=== PATIENT | female | born 1990 | race Caucasian/White ===

== ENCOUNTER 2019-06-01 20:00 | Inpatient (IN) | payer OTHER, SELFPAY ==
--- NOTE | 2019-06-01 21:22 | HPE_ITS ---
History of Present Illness 29 yo at 40 weeks with prelabor ROM - spontaneous @ ~2 AM 06/01. Evaluated in office this morning - Category 1 NST, good mvmt, gross ROM - clear - vtx, GBS neg She wished to have expectant management - spent the afternoon resting, napped ~1 hr. Onset mild/mod ctx ~6 pm - more intense over time. clear AF per vagina today - some mucous lately Denies abd pain, [place], vision changes, edema, tight rings, SOB, herpetic oputbreak compliant with valtrex the past month - 500mg po bid note neg GST times two secondary to BMI two 6, 6.5 pound boys at 37-38 weeks - no labor issues Anemia at 27 weeks - po iron BP range 125-140/75-86 through out - pulse ~100 lifelong plans breast feeding, seeking no meds during labor excellent family support present bi weekly NST's and BP checks have been cat 1 and stable pressure with no to xemic features - no proteinuria, neg labs O: bp per flow sheet - 138/86 comfortable perineum - no herpetic lesions/blisters lungs - celar cvs - reg, baseline tachy abd - 38 cm FH, non tender, firm with ctx cervix - soft, ant, 3 cm/80%/vtx/-2/ OA/ ruptured ext - no edema, nl brisk reflexes - no clonus NST - reactive, cat 1, ctx q 4 A: Early labor - maternal and wellbeing no evidence toxemia, HSV, Anemia P: Expect mod risk for shoulders - this baby is larger than prior and her BMI HL, CBC, cont valtrex Ambulate, shower, allow labor to intensify Dr. Ray aware of case and plan. Chase [place] Results Labs : 06/01/19 20:09
[2019-06-01 22:07] LABS: HCT 35.4 % (36.0-46.0); HGB 11.9 g/dL (12.0-15.5); Mean Corp. HGB Concentration 33.6 g/dL (32.0-36.0); Mean Corpuscular Hemoglobin 28.9 pg (27.0-33.0); Mean Corpuscular Volume 85.9 fL (80-95); Mean Platelet Volume 10.3 fL (8.0-11.0); Platelet Count 273 x1000/uL (130-400); RBC 4.12 m/cumm (4.00-5.20); RBC Distribution Width 15.5 % (11.7-14.6); White Blood Cell Count 12.07 k/cumm (4.4-10.8)
[2019-06-01] MEDS: valACYclovir 500 MG TAB PO (22:21)
[2019-06-02] MEDS: Acetaminophen 325 MG TAB 650 MG PO ×3 (00:29→16:48)
[2019-06-02] MEDS: Ibuprofen 600 MG TAB PO ×3 (02:07→16:49)
[2019-06-02 07:12] LABS: HCT 31.4 % (36.0-46.0); HGB 10.7 g/dL (12.0-15.5); Mean Corp. HGB Concentration 34.1 g/dL (32.0-36.0); Mean Corpuscular Hemoglobin 29.4 pg (27.0-33.0); Mean Corpuscular Volume 86.3 fL (80-95); Mean Platelet Volume 10.5 fL (8.0-11.0); Platelet Count 266 x1000/uL (130-400); RBC 3.64 m/cumm (4.00-5.20); RBC Distribution Width 15.6 % (11.7-14.6); White Blood Cell Count 17.89 k/cumm (4.4-10.8)
[2019-06-02] MEDS: valACYclovir 500 MG TAB PO (11:06)
[2019-06-02] MEDS: Docusate Sodium 100 MG CAP PO (21:41)
== END 2019-06-03 10:50 | disposition home or self-care (01) | DRG 806 ==
PROVIDERS: Admitting Provider Family Medicine; PCP Family Medicine; Visit Provider Family Medicine
DX: O62.3 Precipitate labor (principal); O99.834 Other infection carrier state complicating childbirth; Z37.0 Single live birth; Z3A.40 40 weeks gestation of pregnancy; O70.0 First degree perineal laceration during delivery; O69.81X0 Labor and delivery complicated by cord around neck, without compression, not applicable or unspecified; O13.5 Gestational [pregnancy-induced] hypertension without significant proteinuria, complicating the puerperium; Z67.41 Type O blood, Rh negative; O99.02 Anemia complicating childbirth; D64.9 Anemia, unspecified
CPT/HCPCS: 36415; 85027; 86850; 86900; 86901; 99220; 86870; 86902; J2590